=== PATIENT | female | born 1955 | race Caucasian/White ===

== ENCOUNTER 2016-04-13 09:21 | Outpatient (CLI) | payer OTHER ==
[~2016-04-13 09:21] MED LIST: ASPIRIN ADULT L81 M1 PO; CALCIUM; CENTRUM SILVER PO; LOSARTAN POTASS50 MG PO; MAGNESIU; NORCO1 TA1 PO; SYNTHROID112 MCG PO; XANAX0.5 MG PO
--- NOTE | 2016-04-13 10:39 | DIAGNOSTIC IMAGING REPORT ---
PROCEDURE: CT THORAX ABD PELVIS W/CONT INDICATION: LUNG CANCER, follow-up TECHNIQUE: 125 ml of Isovue 300 injected intravenously and axial images were obtained of the entire thorax, abdomen, and pelvis with sagittal and coronal reformations. COMPARISON: CT chest/abdomen/pelvis 11/11/2015 and 07/20/2015 FINDINGS: THORAX: There is right hilar/mid lung scarring in the sagittal plane, unchanged. There is no hilar or mediastinal adenopathy. There are two stable inferior para esophageal lymph nodes. Minor emphysematous changes of the upper lobes. Normal airways. No effusion. Normal esophagus. Minor atherosclerosis of the aorta. Coronary atherosclerosis. Normal heart size. No pericardial effusion. Stable left-sided Port-A-Cath. Old minor T9 compression fracture. No suspicious osseous lesions ABDOMEN: Hepatic steatosis. Gallbladder, pancreas, spleen, adrenal glands and the kidneys are normal. Moderate atherosclerosis of the abdominal aorta. Moderate stool. PELVIS: Normal the uterus and adnexa. Distended bladder. No adenopathy, free fluid or pelvic mass. Stable sclerotic iliac and right inferior pubic ramus lesions. Moderate degenerative changes of the spine. IMPRESSION: 1. Stable right hilar/mid lung post treatment scarring without evidence of recurrence 2. Stable small para esophageal lymph nodes 3. Stable sclerotic osseous lesions, probable metastases. 4. Hepatic steatosis All CT scans at this facility use dose modulation, iterative reconstruction, and/or weight-based dosing when appropriate to reduce radiation dose to as low as reasonably achievable.
== END 2016-04-13 23:00 ==
LOC: CT SRH 09:21
DX: C34.90 Malignant neoplasm of unspecified part of unspecified bronchus or lung (principal)